=== PATIENT | male | born 1965 | race Two or more races ===

== ENCOUNTER 2019-02-05 20:27 | Observation (INO) | payer BC ==
[~2019-02-05] VITALS: Ht 167.6 cm; Wt 75.0 kg
--- NOTE | ~2019-02-05 | HEMODYNAMI ---
PATIENT:GISSELLE NIELSEN MEDICAL RECORD: [id number] : 65 LOCATION:[facility] [address] [facility]# [id number] ADMISSION DATE: 02/05/19 Generatedon:02/06/20198:38 Patient name: GISSELLE NIELSEN Patient #: [id number] SSN: : 1965 Date of study: 02/06/2019 Page: Of Hemodynamic Procedure Report Patient Data Patient Demographics Procedure consent was obtained First Name: GISSELLE Gender: Male Last Name: GIA : 1965 Patient #: [id number] Age: 53 year(s) Race: Other Additional ID: [id number] Contact details Address: [address] [place] [address] State: [place] City: [place] Zip code: [address] Past Medical History Allergies: No known allergies Admission Admission Data Admission Date: 02/05/2019 Admission Time: 21:14 Arrival Date: 02/06/2019 Arrival Time: 0:00 Admit Source: Emergency Insurance Payor: Private department health insurance Room #: D.2121 [facility] #: [id number] Height (in.): 66 BSA: 1.84 (m2) Height (cm.): 167.64 BMI: 26.63 (kg/m2) Weight (lbs.): 165 Weight (kg.): 74.84 Procedure Procedure Types Cath Procedure Diagnostic Procedure LHC [facility] w/Coronaries Sedation Charges Moderate Sedation up to 15 minutes PCI Procedure Coronary Stent Coronary Stent Initial x2 Procedure Description Procedure Date Procedure Date: 02/06/2019 Procedure Start Time: 8:15 Procedure End Time: 8:35 Procedure Staff Name Function Luis Campbell MD Performing Physician Leonardo Green RT Monitor Aftab Caceres RT Scrub Shelbi Ovalle RT Scrub Deniz Lopez RN Nurse Indication CAD Previous stent placement Procedure Data Cath Procedure Fluoroscopy Diagnostic fluoroscopy Total fluoroscopy Time: 4.4 time: 4.4 min min Diagnostic fluoroscopy Total fluoroscopy dose: 560 dose: 560 mGy mGy Contrast Material Contrast Material Type Amount (ml) Isovue 300 116 Entry Location Entry Primary Successful Side Size Upsize Upsize Entry Closure Succes sful Closure Location (Fr) 1 (Fr) 2 (Fr) Remarks Device Remarks Femoral Right 5 Fr 6 Fr Exoseal artery Short Estimated blood loss: 10 ml Diagnostic catheters Device Type Used For End Catheter Placement MULTIPACK Pigtail 5 Fr Procedure catheter MULTIPACK JL 4.0 5Fr Procedure catheter MULTIPACK 3DRC 5Fr Procedure catheter Procedure Complications No complications Procedure Medications Medication Administration Route Dosage 0.9% NaCl I.V. 100 ml/hr Oxygen etCO2 Nasal cannula 2 l/min Heparin Flush Bag added to field 2 bags (1000units/500ml NS) Lidocaine 2% added to field 20 Versed I.V. 2 mg Fentanyl I.V. 100 mcg Versed I.V. 1 mg Heparin Bolus I.V. 4000 units Integrilin (Bolus I.C. 6.8 ml 2mg/ml) Integrilin (Bolus wasted 3.2 ml 2mg/ml) Plavix P.O. 75 mg Hemodynamics Rest BSA: 1.84 (m2) O2 Consumption: Estimated: 223.75 (ml/min) O2 Consumption indexed : Estimated:121.6 (ml/min/m) Heart Rate: 77 (bpm) Snapshots Pre Cath Intra NCS Post Cath Vital Signs Time Heart Resp SPO2 etCO2 NIBP (mmHg) Rhythm Pain Sedation Rate (ipm) (%) (mmHg) Status Level (bpm) 7:55:16 69 15 100 0 156/94(125) NSR 0 (11) 10(A) , No pain 7:59:28 76 16 100 32.9 147/101(121) NSR 0 (11) 10(A) , No pain 8:03:38 72 29 98 37.4 143/96(113) NSR 0 (11) 10(A) , No pain 8:07:50 73 11 96 43.4 117/81(95) NSR 0 (11) 10(A) , No pain 8:11:58 67 11 96 43.4 111/76(100) NSR 0 (11) 10(A) , No pain 8:16:06 69 11 96 41.9 117/70(101) NSR 0 (11) 10(A) , No pain 8:20:14 63 11 96 43.4 113/77(94) NSR 0 (11) 9(A) , No pain 8:24:22 69 14 96 44.9 102/69(81) NSR 0 (11) 9(A) , No pain 8:28:29 73 12 96 43.4 100/64(93) NSR 0 (11) 10(A) , No pain 8:32:33 72 12 96 43.4 114/73(95) NSR 0 (11) 10(A) , No pain Medications Time Medication Route Dose Verified Delivered Reason Notes Effectiveness by by 7:59:38 0.9% NaCl I.V. 100 Deniz Deniz Per physician ml/hr Jessica Lopez RN RN 7:59:49 Oxygen etCO2 2 Deniz Deniz for low 02 sats Nasal l/min Jessica Lopez cannula RN RN 8:00:00 Heparin Flush added 2 Deniz Deniz used for Bag to bags Jessica Lopez procedure (1000units/500ml field RN RN NS) 8:00:13 Lidocaine 2% added 20ml Deniz Deniz for local to vial Jessica Lopez anesthetic field RN RN 8:14:30 Versed I.V. 2 mg Deniz Deniz for sedation Jsesica Lopze RN RN 8:14:38 Fentanyl I.V. 100 Deniz Deniz for sedation mcg Jessica Lopez RN RN 8:17:47 Versed I.V. 1 mg Deniz Deniz for sedation Jessica Lopez RN RN 8:22:00 Heparin Bolus I.V. 4000 Deniz Deniz for units Jessica Lopez anticoagulation RN RN 8:23:03 Integrilin I.C. 6.8 Deniz Smith for (Bolus 2mg/ml) ml Jessica Campbell MD antiplatelet RN therapy 8:23:16 Integrilin wasted 3.2ml Deniz Smith to sharp's (Bolus 2mg/ml) Jessica Campbell MD RN 8:32:17 Plavix P.O. 75 mg Deniz Smith for Jessica Campbell MD antiplatelet RN therapy Procedure Log Time Note 7:29:24 Informed consent obtained and on chart 7:32:42 Indication : CAD 7:32:47 Indication : Previous stent placement 7:39:24 Admit Source: Emergency department 7:39:39 Patient Height : 66 inches 7:39:47 Patient Weight : 165 lbs 7:39:47 Insurance Payor : Private health insurance 7:40:05 Arrival Date: 02/06/2019 12:00:00 AM 7:43:27 ACC Patient presents with Non-STEMI CCS Anginal Class 4--Inability to carry out any physical activity w/o angina. Angina may occur at rest. 7:43:32 Procedure Status Urgent Heart Cath (IP). 7:43:34 Aftab PARRY(R) sent for patient. Start room use. 7:43:34 Time tracking: Regular hours (M-F 7:00 - 5:00) 7:43:37 Plan of Care:Hemodynamics will remain stable., Cardiac rhythm will remain stable., Comfort level will be maintained., Respiratory function will remain adequate., Patient/ family verbilizes understanding of procedure., Procedure tolerated without complication., Recovers from procedure without complications.. 7:43:56 H&P Date Dictated: 02/06/2019 Within 30 days and on chart.. 7:47:58 Patient received from Med II to CCL 1 Alert and oriented. Tansferred to table in Supine position. 7:48:00 Warm blankets applied, and pam hugger turned on for patient comfort. 7:48:01 Correct patient and procedure confirmed by team. 7:48:01 ECG and BP/O2 sat monitors applied to patient. 7:48:02 Pre-procedure instructions explained to patient. 7:48:02 Pre-op teaching completed and patient verbalized understanding. 7:48:04 Family in waiting room. 7:48:07 Patient NPO since Midnight. 7:54:03 Vital chart was started 7:59:38 0.9% NaCl 100 ml/hr I.V. was administered by Deniz Lopez RN; Per physician; 7:59:42 Baseline sample Acquired. 7:59:44 Rhythm: sinus rhythm 7:59:46 Full Disclosure recording started 7:59:49 Oxygen 2 l/min etCO2 Nasal cannula was administered by Deniz Lopez RN; for low 02 sats; 7:59:52 Patient allergic to No known allergies 7:59:54 Is the patient allergic to Iodine/contrast media? No. 7:59:55 Is patient on blood thinner?Yes 7:59:59 ACC The patient was administered the following blood thiners within the last 24 hours: ACCAspirin, ACCPlavix 8:00:00 Heparin Flush Bag (1000units/500ml NS) 2 bags added to field was administered by Deniz Lopez RN; used for procedure; 8:00:01 Patient diabetic? No. 8:00:04 Previous problem with sedation/anesthesia? No ? 8:00:06 Snore? Yes 8:00:07 Sleep apnea? No 8:00:08 Deviated septum? No 8:00:08 Opens mouth fully? Yes 8:00:09 Sticks out tongue? Yes 8:00:10 Airway obstruction? No ? 8:00:13 Lidocaine 2% 20ml vial added to field was administered by Deniz Lopez RN; for local anesthetic; 8:00:14 Dentures? Yes in tight 8:00:17 Pre procedure: right dorsailis pedis pulse 2+ Normal; easily identifiable; not easily obliterated 8:00:21 Patient pain scale 0/10 ?. 8:00:27 IV patent on arrival in right forearm with 0.9% NaCl at [facility]. 8:01:02 Lab Result : BUN 17 mg/dl 8:01:02 Lab Result : Creatinine 1.3 mg/dl 8:01:02 Lab Result : Hemoglobin 15.6 g/dl 8:01:02 Lab Result : Hematocrit 45.1 % 8:01:05 Lab results completed and on chart. 8:01:07 Right groin area was prepped with chlora-prep and draped in sterile fashion 8:01:08 Alarms reviewed by R. N. 8:01:08 Sharps counted by scrub and verified by R.N. 8:01:11 Use device set Femoral Dx 8:01:11 ACIST Syringe (78145) opened to sterile field. 8:01:12 Bag Decanter (2002S) opened to sterile field. 8:01:12 Medline Cath Pack ([id number]) opened to sterile field. 8:01:13 ACIST Hand Control (03490) opened to sterile field. 8:01:13 ACIST Manifold (58522) opened to sterile field. 8:01:14 Tegaderm 4 x 4 (1626W) opened to sterile field. 8:01:15 DIAGNOSTIC Multipack 5Fr catheter set (QS5082) opened to sterile field. 8:01:16 EMERALD Guide Wire (320-011) opened to sterile field. 8:01:16 SHEATH 5FR [place] (PWH422) opened to sterile field. 8:09:34 Zero performed for pressure channel P1 8:13:46 Physician arrived 8:13:46 --------ALL STOP TIME OUT------ 8:13:47 Final Timeout: patient, procedure, and site verified with staff and physician. All members of the team are in agreement. 8:13:49 Right groin site verified by team. 8:13:51 Fire Safety Assessment: A--An alcohol-based skin anteseptic being used preoperatively., C--Open oxygen or nitrous oxide is being used., D--An ESU, laser, or fiber-optic light is being used. 8:13:54 Physical assessment completed. ASA score P 2 - A patient with mild systemic disease as per Luis Campbell MD. 8:13:56 2) 60-89 Mildly reduced kidney function, and other findings (as for stage 1) point to kidney disease. 8:13:59 Maximum allowable contrast dose (3.7 X eGFR X 0.75)170 ml. 8:14:02 Sedation plan: IV Moderate Sedation Medication:Versed, Fentanyl 8:14:30 Versed 2 mg I.V. was administered by Deniz Lopez RN; for sedation; 8:14:38 Fentanyl 100 mcg I.V. was administered by Deniz Lopez RN; for sedation; 8:15:23 Procedure started. 8:15:26 Local anesthetic to right femoral artery with Lidocaine 2% by Luis Campbell MD.INITIAL ACCESS ONLY 8:15:34 A 5 Fr sheath was inserted into the Right Femoral artery 8:15:47 A MULTIPACK Pigtail 5 Fr catheter was advanced over the wire and used for Procedure. 8:16:35 LV gram done using JURADO 8:16:37 Injector settings: Ml/sec: 10, Volume: 20, 8:16:39 LV hemodynamics recorded. 8:16:58 EF : 50 % 8:17:00 Catheter exchanged over wire. 8:17:04 A MULTIPACK JL 4.0 5Fr catheter was advanced over the wire and used for Procedure. 8:17:47 Versed 1 mg I.V. was administered by Deniz Lopez RN; for sedation; 8:18:09 LCA angiography performed. 8:20:07 Catheter exchanged over wire. 8:20:11 A MULTIPACK 3DRC 5Fr catheter was advanced over the wire and used for Procedure. 8:20:14 RCA angiography performed. 8:20:27 ACCDominant side:Co-Dominant 8:20:43 CHOICE PT Extra Support 182cm wire ([id number]) opened to sterile field. 8:20:47 SHEATH 6FR [place] (SYA686) opened to sterile field. 8:20:47 INFLATOR Merit BasixCompak (IE2660) opened to sterile field. 8:20:52 GUIDE 6FR XBLAD 3.5 catheter ([id number]) opened to sterile field. 8:21:00 Catheter removed. 8:21:05 Sheath upsized to a 6 Fr Short. 8:21:13 6 Fr xblad 3.5 guide catheter was inserted over the wire 8:21:35 Pre PCI Site: [place] OM2 has 90% stenosis. 8:21:39 choie pt es wire advanced. 8:22:00 Heparin Bolus 4000 units I.V. was administered by Deniz Lopez RN; for anticoagulation; 8:23:03 Integrilin (Bolus 2mg/ml) 6.8 ml I.C. was administered by Luis Campbell MD; for antiplatelet therapy; 8:23:16 Integrilin (Bolus 2mg/ml) 3.2ml wasted was administered by Luis Campbell MD; to sharp's; 8:23:29 Wire advanced across lesion. 8:24:34 Place stent Inflation Number: 1 A REY RX 2.5 x 18 stent ([id number]) was prepped and advanced across the 2nd Ob Machelle . The stent was deployed at 15 SHEFALI for 0:10 (min:sec) . 8:24:52 Post PCI Site: [place] OM2 has 0% stenosis. 8:24:54 Stent catheter was removed intact over wire. 8:24:58 ACC Pre-intervention AYSHA Flow is 3. 8:25:00 ACC Post-intervention AYSHA Flow is 3. 8:25:10 Wire removed. 8:25:10 Guide catheter removed. 8:25:20 GUIDE 6FR AR 2.0 SH catheter ([id number]) opened to sterile field. 8:25:26 choice pt es wire advanced. 8:25:47 ACT drawn and resulted at 223 seconds. (normal therapeutic range 180-240 seconds). 8:27:16 Wire advanced across lesion. 8:28:44 Pre PCI Site: [place] pRCA has 85% stenosis. 8:28:46 ACC Pre-intervention AYSHA Flow is 3. 8:29:31 Place stent Inflation Number: 1 A REY RX 3.0 x 34 stent ([id number]) was prepped and advanced across the Prox RCA . The stent was deployed at 19 SHEFALI for 0:10 (min:sec) . 8:29:56 ACC Post-intervention AYSHA Flow is 3. 8:29:57 Stent catheter was removed intact over wire. 8:29:58 Wire removed. 8:29:59 Guide catheter removed. 8:30:09 EXOSEAL 6Fr (EX600) opened to sterile field. 8:30:16 Sheath removed intact; hemostasis achieved with Exoseal to the Right Femoral artery. 8:30:17 Procedure ended.(Physican Out) 8:30:40 Fluoroscopy time 04.40 minutes. 8:30:43 Flurop Dose total: 560 8:30:43 Fluoroscopy dose: 560 mGy 8:30:49 Dose Area Product 32350 mGy/cm. 8:32:11 Contrast amount:Isovue 300 116ml. 8:32:14 Maximum allowable dose exceeded? No. 8:32:17 Plavix 75 mg P.O. was administered by Luis Campbell MD; for antiplatelet therapy; 8:32:18 Sharps counted by scrub and verified by R.N. 8:32:19 Insertion/operative site no bleeding no hematoma. 8:32:22 Post-op/insertion site Right Femoral artery dressed using a 4 x 4 and Tegaderm. 8:32:28 Post right femoral artery:stable, soft, clean and dry 8:32:29 Post Procedure Pulses reassessed and unchanged 8:32:31 Post-procedure physical assessment completed. ASA score P 2 - A patient with mild systemic disease as per Luis Campbell MD. 8:32:33 Post procedure rhythm: unchanged. 8:32:36 Estimated blood loss: 10 ml 8:32:37 Post procedure instruction explained to patient.Patient verbalizes understanding. 8:32:38 Patient needs reinforcement of post procedure teaching. 8:32:49 Procedure type changed to Cath procedure, Diagnostic procedure, LHC, LHC w/Coronaries, Sedation Charges, Moderate Sedation up to 15 minutes, PCI procedure, Coronary Stent, Coronary Stent Initial x2 8:33:07 Procedure and supply charges have been captured, reviewed, submitted and are correct. 8:33:09 Procedure Complication : No complications 8:33:11 Vital chart was stopped 8:33:11 See physician's report for complete and final results. 8:34:38 Report given to Pre/Post Procedure Room. 8:34:41 Patient transfered to Pre/Post Procedure Room with Stretcher. 8:35:11 Procedure ended. 8:35:11 Full Disclosure recording stopped 8:35:17 ACC-PCI Only Patient was given prescriptions, or instructed by Lusi Campbell MD to start/continue the following medications upon discharge: Aspirin, Plavix 8:35:19 End room use (Document Last) Intervention Summary Intervention Notes Time ActionType Lesion and Equipment Used Action# Pressure Duration Attributes 8:24:34 Place stent 2nd Ob Machelle REY RX 2.5 x 1 15 00:10 18 stent ([id number]) 8:29:31 Place stent Prox RCA ERY RX 3.0 x 1 19 00:10 34 stent ([id number]) Device Usage Item Name Manufacture Quantity Catalog Number Hospital Part Current M inimal Lot# / Charge Number Stock Stock Serial# Code ACIST Syringe Acist 1 46463 080735 503254 552409 2 0 (55526) Medical Systems Inc Bag Decanter Microtek 1 125455 51550 957853 5 () Medical Inc. Medline Cath Medline 1 [id number] 734562 21464 719883 5 Pack ([id number]) ACIST Hand Acist 1 45224 055061 724909 370791 5 Control Medical (34303) Systems Inc ACIST Manifold Acist 1 56317 916891 205664 831111 5 (16751) Medical Systems Inc Tegaderm 4 x 4 3M 1 1626W 964306 560764 177989 5 (1626W) DIAGNOSTIC Cardinal 1 QT0652 390909 00285 142493 3 0 Multipack 5Fr Health catheter set (SF0668) EMERALD Guide Cardinal 1 502-455 797813 091596 351442 5 Wire (502-455) Health SHEATH 5FR Terumo 1 TLQ648 633421 692818 798279 5 [place] (JSD165) MULTIPACK Cardinal 1 789414 5 Pigtail 5 Fr Health catheter MULTIPACK JL Cardinal 1 008302 5 4.0 5Fr Health catheter MULTIPACK 3DRC Cardinal 1 674874 5 5Fr catheter Health CHOICE PT Cascade 1 [id number] 339437 404227 215761 5 Extra Support Scientific 182cm wire ([id number]) SHEATH 6FR Terumo 1 NYT213 237883 346964 854407 4 0 [place] (LCO049) INFLATOR Merit Merit 1 YY9248 193820 285023 232411 1 5 GodTube Medical (RB4544) GUIDE 6FR Cardinal 1 74535774 555743 593919 710601 1 0 XBLAD 3.5 Health catheter ([id number]) REY RX 2.5 x Medtronic 1 [id number] 670635 6877456 299503 5 [id number] 18 stent ([id number]) GUIDE 6FR AR Medtronic 1 [id number] 375865 34191 094520 1 2.0 SH catheter ([id number]) REY RX 3.0 x Medtronic 1 [id number] 885941 8669838 438455 5 [id number] 34 stent ([id number]) EXOSEAL 6Fr Cardinal 1 EX600 630181 589978 662368 1 0 (EX600) Health Signature Audit Cougar Stage Time Signature Unsigned Intra-Procedure 02/06/2019 Leonardo Green 8:38:10 AM RT(R) Signatures Performing Physician : Signature : Luis Campbell MD Date : Time : Monitor : Leonardo Green RT Signature : Date : Time : Nurse : Deniz Lorigan Signature : RN Date : Time : [place] [address] [place] [address]
--- NOTE | 2019-02-05 20:40 | NUR ---
PT TOOK 8 81MG ASA ABOUT 3 HOURS AGO
[2019-02-05 21:04] LABS: BASOPHILS 0.2 % (0-2); EOSINOPHILS 0.2 % (0-7); HEMATOCRIT 45.1 % (42.0-54.0); HEMOGLOBIN 15.6 g/dL (13.5-17.5); IMMATURE GRANULOCYTES 0.3 % (0-5); LYMPHOCYTES 17.9 % (15-50); MCH 33.2 pg (26.0-34.0); MCHC 34.6 g/dL (31.0-37.0); MEAN PLATELET VOLUME 10.3 fL (7.4-10.4); MONOCYTES 6.8 % (2-11); NEUTROPHILS 74.6 % (40-80); PLATELET COUNT 228 10x3/uL (130-400); RDW 13.1 % (11.5-14.5); WBC 13.4 10x3/uL (4.8-10.8)
[2019-02-05 21:10] VITALS: BP 138/93
[2019-02-05 21:12] LABS: APTT 30.6 SECONDS (22.8-39.4); INR 1.06 (0.85-1.17); PROTIME 13.3 SECONDS (11.6-15.0)
[2019-02-05 21:20] VITALS: BP 138/86
--- NOTE | 2019-02-05 21:21 | NUR ---
NTG GIVEN. RATED PAIN 3/10 BEFORE AND 2/10 AFTER 3 TABS. ERP INFORMED.
[2019-02-05 21:22] LABS: ALBUMIN 4.1 g/dL (3.4-5.0); ALKALINE PHOSPHATASE 80 U/L (46-116); ALT (SGPT) 35 U/L (10-68); BILIRUBIN - TOTAL 0.42 mg/dL (0.2-1.3); CALC OSMOLALITY 287 mosm/kg (275-300); CALCIUM 9.6 mg/dL (8.5-10.1); CARBON DIOXIDE 28.9 mmol/L (21.0-32.0); CHLORIDE - SERUM 105 mmol/L (98-107); CREATININE - SERUM 1.3 mg/dL (0.6-1.3); GLUCOSE 113 mg/dL (74-106); POTASSIUM - SERUM 4.2 mmol/L (3.5-5.1); PROTEIN - SERUM 8.1 g/dL (6.4-8.2); SODIUM 143 mmol/L (136-145); UREA NITROGEN 17 mg/dL (7-18); eGFR NON AFRICAN AMERICAN 61 mL/min (90-120)
[2019-02-05 21:39] LABS: CKMB 247.5 U/L (0.0-3.6); CREATINE KINASE 1099 UL (21-232); MAGNESIUM - SERUM 2.4 mg/dL (1.8-2.4)
[2019-02-05 21:50] VITALS: BP 133/88
[2019-02-05 22:20] VITALS: BP 153/95
--- NOTE | 2019-02-05 23:15 | NUR ---
RECEIVED FROM ER, PT IS A&O, DR. MARTINEZ SEEN PT, SAID HE COULD HAVE A SANDWICH AND DRINK (PROVIDE), IV-20G.-RFA-NS@200, AT BEDSIDE, PT DENIES ANY NEEDS, TELEMTRY IS ON, BED IS LOW, SRX2, CALL LIGHT IN REACH, WILL CONTINUE PLAN OF CARE
[2019-02-06] VITALS: BP 146/99
[2019-02-06 00:18] VITALS: BP 146/99; Ht 167.6 cm; Wt 75.0 kg
--- NOTE | 2019-02-06 00:47 | NUR ---
ADMISSION ASSESSMENT COMPLETED. PT ALERT/ORIENTED. HE IS FLUENT IN CHINESE AND PRYDEINIG AND JORDANIAN IS HIS 2ND LANGUAGE. IVF NS @ 200ML/HR INFUSING TO RFA. TELEMETRY SR/SB. REPORTS MILD CHEST PRESSURE BUT IS NOT A BIG MEDICATION USER, SO DECLINES THE NEED FOR PAIN MEDS AT THIS TIME. SEEN BY DR MARTINEZ. WILL BE NPO FOR HEART CATH IN AM AFTER PATIENT EATS A SANDWICH.
[2019-02-06 04:00] VITALS: BP 140/94
--- NOTE | 2019-02-06 07:30 | NUR ---
ALERT AND ORIENTED, DENIES ANY NEEDS. TELEMERTY SHOWS SB 55. RIGHT FA IV WITH NS. UP AB IVAN. PRE OPED FOR CATH
[2019-02-06 08:30] LABS: CREATINE KINASE 3481 UL (21-232)
--- NOTE | 2019-02-06 08:39 | HP ---
PATIENT: GISSELLE NIELSEN MEDICAL RECORD: [id number] ACCOUNT: [id number] LOCATION:[address] : 65 ADMISSION DATE: 02/05/19 PCP: MAGO BANKS MD HISTORY AND PHYSICAL EXAMINATION DIAGNOSES: 1. Non-Q-wave myocardial infarction. 2. Coronary artery disease. 3. Previous percutaneous transluminal coronary angioplasty and stent. HISTORY OF PRESENT ILLNESS: This is a gentleman with a past history of coronary artery disease in 2011. He underwent PTCA and stent in [place]. He was living in [place] at that time, he had done well until this afternoon, approximately noon, he developed chest discomfort when he was outside working in the yard. He initially thought this is secondary to dehydration. The chest discomfort persisted. He presents to the Emergency Room. Troponin was positive for non-Q-wave myocardial infarction. He has no significant EKG changes with this. Continues to have the chest discomfort, but at a minimal level. At this time, his heart rates in the 50s. No need for further beta-blockade. Systolic blood pressures in the 130 to 150 range. PHYSICAL EXAMINATION: GENERAL APPEARANCE: Well-nourished, well-developed, appears stated age. Level of distress, comfortable. PSYCHIATRIC: Mental status, alert, normal affect. Orientation, oriented to time, place and person. EYES: Lids and conjunctiva, noninjected. No discharge, no pallor. ENT: Lips, teeth, gums, normal dentition. Oropharynx, no cyanosis, no pallor. NECK: Carotid arteries, bilateral normal upstroke, no bruits, no thrills. JUGULAR VEINS: No jugular venous pressure or distention. CERVICAL LYMPH NODES: Nontender, nonenlarged. THYROID: Not enlarged. Nontender. No nodules. LUNGS: Respiratory effort, unlabored. CHEST: Normal curvature. No thoracic deformity. No chest wall tenderness. Percussion, resonant. Auscultation, clear. No wheezes, no rales, no rhonchi. CARDIOVASCULAR: Precordial exam, nondisplaced. No heaves or pericardial thrills. Rate and rhythm, regular. Heart sounds, normal S1, normal S2. No S3, no gallop, no rub. Systolic murmur, not heard. Diastolic murmur, not heard. EXTREMITIES: No cyanosis, no edema. Peripheral pulses, full and equal in all extremities, except as noted. No bruits appreciated. ABDOMEN: Soft, nondistended. Normal aorta. No bruit. Nontender. No masses. Liver, nontender, no hepatomegaly. Spleen, nontender, no splenomegaly. MUSCULOSKELETAL: No joint tenderness. No joint swelling. No erythema. NEUROLOGICAL: Normal gait, normal strength, normal tone. SKIN: Warm and dry. OVERALL IMPRESSION: Non-Q-wave myocardial infarction. He has been loaded on Plavix. He has been given aspirin. We will give a dose of enoxaparin, give him a nitropatch, proceed with coronary angiography in the a.m. TRANSINT:[id number] Voice Confirmation ID: [id number] DOCUMENT ID: [id number] HISTORY AND PHYSICAL [id number] GISSELLE NIELSEN JEFFREY MD at 0839 CC: [id number] DICTATION DATE: 02/05/19 2334 TAPE CALENDER: 02/06/[address] [facility] [address] [place] [address]
--- NOTE | 2019-02-06 08:55 | NUR ---
PT ARRIVED BY STRETCHER. PLACED ON MONITORS. ASSESSMENT COMPLETED. PT'S FAMILY AT BEDSIDE. CALL LIGHT WITHIN REACH
--- NOTE | 2019-02-06 08:55 | NUR ---
PT KEPT IN JUNIOR ACCOUNT MANAGER HOLDING. FAMILY TO ROOM
--- NOTE | 2019-02-06 09:10 | NUR ---
PT RESTING COMFORTABLY. RIGHT GROIN DRESSING C/D/I. NO S/S OF HEMATOMA NOTED. VSS. CALL LIGHT WITHIN REACH.
[2019-02-06] MEDS ORDERED: BAYER CHEWABLE81 MG PO (09:22)
[2019-02-06] MEDS ORDERED: PLAVIX75 MG PO (09:22)
[2019-02-06] MEDS ORDERED: PRAVACHOL40 MG PO (09:22)
--- NOTE | 2019-02-06 09:40 | NUR ---
PT RESTING COMFORTABLY. VSS. RIGHT GROIN DRESSING C/D/I. NO S/S OF HEMATOMA NOTED. FAMILY AT BEDSIDE.CALL LIGHT WITHIN REACH.
--- NOTE | 2019-02-06 10:05 | NUR ---
RADIO ELECTRONICS OFFICER AT BEDSIDE TO COMPLETE ECHO.
--- NOTE | 2019-02-06 10:35 | NUR ---
RIGHT GROIN DRESSING C/D/I. NO S/S OF HEMATOMA NOTED. VSS. PT RESTING COMFORTABLY. NO NEEDS AT THIS TIME.
--- NOTE | 2019-02-06 10:48 | NUR ---
DR. MARTINEZ AT BEDSIDE. SPEAKING WITH PT AND PT'S FAMILY. RIGHT GROIN DRESSING C/D/I. NO S/S OF HEMATOMA NOTED.
--- NOTE | 2019-02-06 10:59 | NUR ---
PT DENIES NAUSEA. GIVEN WATER TO DRINK AND SANDWICH TRAY. PT'S FAMILY AT BEDSIDE TO ASSIST.
--- NOTE | 2019-02-06 11:42 | NUR ---
RIGHT GROIN DRESSING C/D/I. NO S/S OF HEMATOMA NOTED. HEAD OF BED INC TO 30 DEGREES. TOLERATED WELL. VSS. FAMILY AT BEDSIDE. CALL LIGHT WITHIN REACH.
--- NOTE | 2019-02-06 12:15 | NUR ---
RIGHT ARM PIV D/C'D WITH CATH TIP INTACT. PT TOLERATED WELL. INSTRUCTED TO GET UP AND DRESSED. FAMILY AT BEDSIDE TO ASSIST. RIGHT GROIN DRESSING C/D/I. NO S/S OF HEMATOMA NOTED.
--- NOTE | 2019-02-06 12:20 | NUR ---
PT AMBULATED TO RESTROOM. VOIDED WITHOUT DIFFICULTY. RIGHT GROIN DRESSING C/D/I. NO S/S OF HEMATOMA NOTED. DISCUSSED DISCHARGE INSTRUCTIONS WITH PT AND PT'S FAMILY. THEY VOICED UNDERSTANDING.
--- NOTE | 2019-02-06 12:45 | NUR ---
PT TAKEN OUT TO VEHICLE BY WHEELCHAIR. NO S/S OF DISTRESS NOTED. ALL BELONGINGS AND PAPERWORK IN HAND.
--- NOTE | 2019-02-07 09:53 | DS ---
PATIENT:GISSELLE NIELSEN :65 MEDICAL RECORD: [id number] DISCHARGE SUMMARY ADMISSION DATE: 02/05/19 DISCHARGE DATE: 02/06/19 DATE OF DISCHARGE: 02/06/2019. DIAGNOSES: 1. Non-Q-wave myocardial infarction. 2. Coronary artery disease. 3. Percutaneous transluminal coronary angioplasty stent of left circumflex and right coronary artery this admission. 4. Hyperlipidemia. HOSPITAL COURSE: Mr. Nielsen presents with chest pain and non-Q-wave myocardial infarction, underwent cardiac catheterization revealing critical disease of the left circumflex as well as RCA, underwent successful PTCA stent of both territories, was discharged home with the addition of aspirin, Plavix, Pravachol to his medical regimen and no beta-jessica was undertaken secondary to resting bradycardia with heart rates in the 50s. Will follow up with [facility] in 1 month. TRANSINT:[id number] Voice Confirmation ID: [id number] DOCUMENT ID: [id number] JOCELYN MARTINEZ MD at 0953 CC: [id number] DICTATION DATE: 02/06/19 08 SCHOOL ADMINISTRATOR: 02/06/19 0900 DIS IN 02/06/19 [facility] [address] [place] [id number]
--- NOTE | 2019-02-07 09:53 | EC ---
PATIENT:GISSELLE NIELSEN DATE OF SERVICE: 02/05/19 SEX: M MEDICAL RECORD: [id number] DATE OF : 65 [facility] AGE [facility] PAT[facility]: 53 ADMISSION DATE: 02/05/19 REFERRING PHYSICIAN: INTERPRETING PHYSICIAN: JOCELYN CAMPBELL MD ECHOCARDIOGRAM REPORT ECHO CHARGES 4 ECHO COMPLETE Date: 02/06/19 CLINICAL DIAGNOSIS: KS ECHOCARDIOGRAPHIC MEASUREMENTS (adult normal given) AC root (d.<3.7cm) 3.2 cm LV Septum d (<1.2 cm> 1.2 cm Valve Excursion 2.2 cm LV Septum (systole) 1.3 cm Left Atria (s.<4.0cm> 2.9 cm LVPW d(<1.2cm) 1.3 cm RV (d.<2.3cm) 3.0 cm LVPW (sytole) 1.4 cm LV diastole(<5.6CM) 5.2 cm MV E-F(>70mm/sec) cm LV systole 3.8 cm LVOT Diameter 2.1 cm MV exc.(>10mm) cm Est.ejection fraction (50-75%) % DOPPLER: LVIT cm/sec A 76 cm/sec E 67 cm/sec LA cm/sec RVSP 29.6 mmHg LVOT 97 cm/sec AOP1/2T m/s Asc. 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 Campbell TAPE# PACS Pericardial Effusion N DATE OF SERVICE: 02/06/2019 PROCEDURE: Echocardiogram. FINDINGS: 1. Left ventricular chamber size is within normal limits. Left ventricular systolic function is preserved at 50%. 2. Left atrium is within normal limits. Right atrium and right ventricular chamber sizes are mildly dilated. 3. Valvular structures have normal structure and motion. ECHOCARDIOGRAM REPORT [id number] GISSELLE NIELSEN 4. Doppler interrogation reveals mild tricuspid regurgitation, no other valvular insufficiency or stenosis. Pulmonary systolic pressure is normal estimated at 29 mmHg. 5. No evidence of pericardial effusion or left ventricular thrombus. TRANSINT:[id number] Voice Confirmation ID: [id number] DOCUMENT ID: [id number] JOCELYN CAMPBELL MD at 0953 CC: [id number] DICTATION DATE: 02/06/19 1300 COLORMAN: 02/06/19 1322 DIS IN 02/06/19 [place] [id number] [place] [id number]
--- NOTE | 2019-02-07 09:53 | OP ---
PATIENT NAME: GISSELLE NIELSEN MEDICAL RECORD: [id number] :65 [facility] ADMISSION DATE:02/05/19 SURGEON: JOCELYN MARTINEZ MD DATE OF OPERATION: 02/06/2019 PROCEDURES: 1. PTCA stent left circumflex. 2. PTCA stent RCA. 3. Left heart catheterization. 4. Selective coronary angiography. 5. Left ventriculogram. INDICATION: Myocardial infarction. DESCRIPTION OF PROCEDURE: After informed consent was obtained and after a detailed description of risks, benefits as well as alternative therapies, the patient elected to proceed with angiogram and angioplasty. The right femoral area was prepped and draped in normal sterile fashion. Right femoral artery was cannulated via modified Seldinger technique with placement of 6-[place] sheath. All catheters exchanged through this sheath. FINDINGS: Left ventriculogram was performed in standard 30-degree JURADO view reveals mildly depressed ejection fraction of 45% to 50%. SELECTIVE CORONARY ANGIOGRAPHY: 1. Left main showed no significant angiographic disease. 2. Left anterior descending has moderate irregularities, but no flow-limiting stenosis. 3. The left circumflex has a 90% stenosis in the second obtuse marginal with what appears to be thrombus. 4. The right coronary artery has previously placed stent with up to 85% in-stent restenosis. PTCA STENT OF THE LEFT CIRCUMFLEX: The stent used was a 2.5 x 18 mm [place]. Result was 0% residual stenosis. PTCA STENT OF THE RCA: The stent used was a 3.0 x 34 mm [place]. Result was 0% residual stenosis. OVERALL IMPRESSION: Successful PTCA stent of the RCA and left circumflex, both going from 85% to 90% initial stenosis to 0% residual. TRANSINT:[id number] Voice Confirmation ID: [id number] DOCUMENT ID: [id number] JOCELYN MARTINEZ MD at 0953 CC: [id number] DICTATION DATE: 02/06/19 0839 EVENT DECORATOR: 02/06/19 0911 DIS IN 02/06/19 [place] [id number] [place] [id number]
== END 2019-02-06 12:45 | disposition home or self-care (01) ==
LOC: D.ER 20:27 → EDSEX 20:27 → D.CLR 21:14 → OBSVTIME 21:14 → D.M2 21:14 → D.CLR 02-06 09:17
PROVIDERS: Emergency Medicine; ADMIT Internal Medicine Interventional Cardiology; ATTEND Internal Medicine Interventional Cardiology
DX: I21.4 Non-ST elevation (NSTEMI) myocardial infarction (principal); I25.10 Atherosclerotic heart disease of native coronary artery without angina pectoris; Z95.5 Presence of coronary angioplasty implant and graft; E78.5 Hyperlipidemia, unspecified